=== PATIENT | female | born 1955 | race Hispanic/Latino ===

== ENCOUNTER 2021-06-09 06:41 | Observation (INO) | payer MEDICARE ==
[2021-06-07 11:55] LABS: BASOPHILS # (AUTO) 0.1 (0.0-0.1); BASOPHILS % 0.9 % (0.0-1.0); EOSINOPHILS # (AUTO) 0.1 (0.0-0.4); EOSINOPHILS % 2.1 % (0.0-6.0); HEMATOCRIT 43.4 % (34.2-44.1); HEMOGLOBIN 13.8 g/dL (12.0-16.0); LYMPHOCYTES # (AUTO) 2.5 (1.0-3.2); MEAN CORPUSCULAR HEMOGLOBIN 28.8 pg (28-32); MEAN CORPUSCULAR HGB CONC 31.8 g/dL (31-35); MEAN CORPUSCULAR VOLUME 90.4 fL (81-99); MONOCYTES # (AUTO) 0.7 (0.2-0.8); MONOCYTES % 10.7 % (4.4-11.3); NEUTROPHILS # (AUTO) 3.2 (2.1-6.9); NEUTROPHILS % 48.1 % (38.7-80.0); PLATELET COUNT 290 x10e3/uL (140-360); RED CELL DISTRIBUTION WIDTH 13.8 % (11.7-14.4)
[2021-06-07 12:10] LABS: INR 0.98; PROTHROMBIN TIME 13.9 seconds (11.9-14.5)
[2021-06-07 12:11] LABS: PARTIAL THROMBOPLASTIN TIME 29.8 seconds (23.8-35.5)
[2021-06-07 12:17] LABS: ANION GAP 13.2 mmol/L (8-16); CALCIUM 9.3 mg/dL (8.4-10.2); CREATININE, SERUM 0.75 mg/dL (0.57-1.11); POTASSIUM 4.2 mmol/L (3.5-5.1)
[~2021-06-09] VITALS: Ht 147.3 cm; Wt 49.9 kg
[~2021-06-09 06:41] MED LIST: ASPIRIN81 MG PO; LEVOTHYROXINE88 MCG PO; MONTELUKAST SOD10 MG PO; VENLAFAXINE H37.5 MG PO
[2021-06-09] MEDS ORDERED: Vancomycin IV 1 GM VIAL ONE ×2 (06:57→15:35)
[2021-06-09] MEDS ORDERED: THROMBIN FOR SOLN 5,000 UNIT VIAL ONE (06:57)
[2021-06-09] MEDS ORDERED: LIDOCAINE 2% /EPINEPHRINE 20 ML SDV INJ ONE (06:57)
[2021-06-09] MEDS ORDERED: HYDROCODON-ACE1 EA12 PO (11:29)
[2021-06-09] MEDS ORDERED: ACETAMINOPHEN 325 MG TAB PO PRN (11:30)
[2021-06-09] MEDS ORDERED: PROMETHAZINE HCL (IM) 25 MG/ML VIAL IM PRN (11:30)
[2021-06-09] MEDS ORDERED: MORPHINE SULFATE 5 MG/ML VIAL IM PRN (11:30)
[2021-06-09] MEDS ORDERED: OXYCODONE/ACETAMINOPHEN 5-325 1 EACH TABLET PO PRN (11:30)
[2021-06-09] MEDS ORDERED: CARISOPRODOL 350 MG TAB PO PRN (11:30)
[2021-06-09] MEDS ORDERED: MAGNESIUM/ALUMINUM/SIMETHICONE 30 ML UDC PO PRN (11:30)
[2021-06-09] MEDS ORDERED: ALBUTEROL/IPRATROPIUM 3 ML NEB ONE (11:58)
[2021-06-09] MEDS ORDERED: FENTANYL CITRATE/PF 100MCG/2 ML INJ ONE (11:59)
[2021-06-09] MEDS ORDERED: MIDAZOLAM HCL 2 MG/2 ML VIAL ONE (12:02)
[2021-06-09 12:45] VITALS: BP 130/63
[2021-06-09] MEDS ORDERED: LORAZEPAM INJ 2 MG/ML VIAL ONE (13:50)
[2021-06-09] MEDS ORDERED: LORAZEPAM INJ 2 MG/ML VIAL IV ONE (14:15)
[2021-06-09] MEDS: Cefazolin 1 GM in SODIUM CHLORIDE 0.9% 50ML 50 ML IV SCH ×2 (14:30→20:55)
[2021-06-09] MEDS: LACTATED RINGER'S 1,000 ML IV SCH ×2 (14:30→19:49)
[2021-06-09] MEDS ORDERED: LIDOCAINE HCL 2% LOCAL INJ 5 ML SDV VIAL INJ ONE (15:35)
[2021-06-09] MEDS ORDERED: ROCURONIUM BROMIDE 10 MG/ML 5ML VIAL IV ONE (15:35)
[2021-06-09] MEDS ORDERED: SEVOFLURANE INHAL SOLN 250 ML PEN BTL ONE (15:35)
[2021-06-09] MEDS ORDERED: POVIDONE IODINE 0.05% 0.05 % ML PO ONE (15:35)
[2021-06-09] MEDS ORDERED: ONDANSETRON HCL INJ 2MG/ML 2ML 2 MG/ML VIAL ONE (15:35)
[2021-06-09] MEDS ORDERED: EPHEDRINE SULFATE INJ 50 MG/ML VIAL ONE (15:35)
[2021-06-09] MEDS ORDERED: DEXAMETHASONE SOD PHOS INJ 4 MG/ML SDV ONE (15:35)
[2021-06-09] MEDS ORDERED: PROPOFOL IV EMULSION 10 MG/ML 20 ML VIAL ONE (15:35)
[2021-06-09 16:12] VITALS: BP 105/60
[2021-06-09 20:00] VITALS: BP 105/52
[2021-06-09 20:50] VITALS: BP 105/52
[2021-06-09] MEDS: ONDANSETRON HCL INJ 2MG/ML 2ML 2 MG/ML VIAL IV PRN (20:55)
[2021-06-09] MEDS: HYDROMORPHONE 2MG/ML 2 MG/ML ML IV PRN (20:55)
[2021-06-09] MEDS ORDERED: MONTELUKAST SODIUM 10 MG TAB PO SCH (21:00)
[2021-06-09] MEDS ORDERED: ZOLPIDEM TARTRATE 5 MG TAB PO PRN (21:00)
[2021-06-10] VITALS: BP 116/64
[2021-06-10] MEDS: LACTATED RINGER'S 1,000 ML IV SCH (02:37)
[2021-06-10 04:00] VITALS: BP 110/60
[2021-06-10] MEDS ORDERED: LEVOTHYROXINE SODIUM 88 MCG TAB PO SCH (06:00)
[2021-06-10] MEDS: Cefazolin 1 GM in SODIUM CHLORIDE 0.9% 50ML 50 ML IV SCH (06:13)
[2021-06-10] MEDS: ONDANSETRON HCL INJ 2MG/ML 2ML 2 MG/ML VIAL IV PRN (06:14)
[2021-06-10] MEDS: HYDROMORPHONE 2MG/ML 2 MG/ML ML IV PRN (06:14)
[2021-06-10 08:27] VITALS: BP 127/57
[2021-06-10] MEDS ORDERED: VENLAFAXINE HCL 37.5 MG TAB PO SCH (09:00)
[2021-06-10 09:16] VITALS: BP 127/57
== END 2021-06-10 09:54 | disposition home or self-care (01) ==
LOC: OR 06:41 → PACU V 11:27 → MED/SURG 13:09
PROVIDERS: ADMIT Neurological Surgery; ATTEND Neurological Surgery
DX: M50.021 Cervical disc disorder at C4-C5 level with myelopathy (principal); Z20.822 Contact with and (suspected) exposure to COVID-19; Z01.818 Encounter for other preprocedural examination; G47.33 Obstructive sleep apnea (adult) (pediatric); Z86.73 Personal history of transient ischemic attack (TIA), and cerebral infarction without residual deficits; Z88.1 Allergy status to other antibiotic agents; E78.5 Hyperlipidemia, unspecified; E03.9 Hypothyroidism, unspecified; M50.022 Cervical disc disorder at C5-C6 level with myelopathy
CPT/HCPCS: 20931; 22551; 22552; 22845; 36415; 71046; 72040; 76000; 80048; 85025; 85610; 85730; 86850; 86900; 88304; 88311; 93005; C1713 ×4; C1763; G0378 ×2; J0690 ×2; J1100; J1170 ×2; J2001 ×2; J2060; J2250; J2405 ×2; J2704; J3010; J3370; J7121 ×2; L8699; U0002

== ENCOUNTER → 2021-07-07 | Outpatient (CLI) | payer MEDICARE ==
[~2021-07-07] MED LIST changes: +HYDROCODON-ACE1 EA12 PO
== END ==
LOC: RAD 11:21
PROVIDERS: ATTEND Neurological Surgery
DX: M50.20 Other cervical disc displacement, unspecified cervical region (principal); M43.22 Fusion of spine, cervical region
CPT/HCPCS: 72050

== ENCOUNTER → 2022-01-17 | Outpatient (CLI) | payer MEDICARE | LOC: RAD 10:49 | PROVIDERS: ATTEND Neurological Surgery | DX: M50.20 Other cervical disc displacement, unspecified cervical region (principal); M43.22 Fusion of spine, cervical region | CPT/HCPCS: 72050 ==